=== PATIENT | male | born 1940 | race Caucasian/White ===

== ENCOUNTER 2016-11-26 13:27 | Emergency (ER) | payer MEDICAID, MEDICARE, OTHER ==
[~2016-11-26 13:27] MED LIST: AMOX1TAB64 PO; CYAN500T18 PO; DOXY100T PO; GABA100C8 PO; HYDR-3240 PO; OMEP-110 PO
== END 2016-11-26 15:45 ==
LOC: ED 13:27
DX: M75.32 Calcific tendinitis of left shoulder (principal)
CPT/HCPCS: 99284

== ENCOUNTER 2018-02-02 19:46 | Emergency (ER) | payer MEDICARE ==
[~2018-02-02] VITALS: Ht 188 cm; Wt 100.0 kg
[~2018-02-02 19:46] MED LIST changes: +GABA-826 PO; -GABA100C8 PO
[2018-02-02 19:50] VITALS: BP 111/64
[2018-02-02] MEDS ORDERED: aleve (20:05)
[2018-02-02 20:36] LABS: BASOPHILS # (AUTO) 0.06 x10^3/uL (0-0.1); BASOPHILS % (AUTO) 1 % (0-1); EOSINOPHILS # (AUTO) 0.25 x10^3/uL (0-0.4); EOSINOPHILS % (AUTO) 4 % (1-7); LYMPHOCYTES # (AUTO) 1.46 x10^3/uL (1-3.4); LYMPHOCYTES % (AUTO) 23 % (22-44); MD NO; MEAN CORPUSCULAR HGB CONC 33.4 g/dL (33.2-36.2); MEAN CORPUSCULAR VOLUME 95.8 fL (81-97); MEAN PLATELET VOLUME 7.8 fL (7.4-10.4); MONOCYTES # (AUTO) 0.59 x10^3/uL (0.2-0.8); MONOCYTES % (AUTO) 9 % (2-9); NEUTROPHILS # (AUTO) 4.03 x10^3/uL (1.8-6.8); NEUTROPHILS % (AUTO) 63 % (42-75); PLATELET COUNT 220 x10^3/uL (130-400); RED BLOOD COUNT 4.51 x10^6/uL (4.38-5.82); RED CELL DISTRIBUTION WIDTH 13.2 % (9.4-14.8)
[2018-02-02 20:43] LABS: ALANINE AMINOTRANSFERASE 25 U/L (12-78); ALBUMIN 3.2 g/dL (3.4-5.0); ANION GAP 9 mmol/L (5-15); CALCIUM 7.7 mg/dL (8.5-10.1); CHLORIDE 108 mmol/L (98-107); CREATININE 0.62 mg/dL (0.7-1.3)
[2018-02-02 20:46] LABS: ALKALINE PHOSPHATASE 69 U/L (45-117); BILIRUBIN,TOTAL 0.2 mg/dL (0.2-1.0); TOTAL PROTEIN 6.3 g/dL (6.4-8.2); TROPONIN I < 0.015 ng/mL (0.000-0.045)
[2018-02-02 20:55] LABS: MICROSCOPIC NOT IND
[2018-02-02 20:59] LABS: CULTURE INDICATED? NO
[2018-02-02] MEDS ORDERED: ACETAMINOPHEN 500 MG TABLET ONE (21:50)
[2018-02-02] MEDS ORDERED: ACETAMINOPHEN 500 MG TABLET PO ONE (22:00)
== END 2018-02-02 21:53 | disposition home or self-care (01) ==
LOC: ED 20:47
DX: R53.1 Weakness (principal)
CPT/HCPCS: 36415; 71045; 80053; 81003; 84484; 85025; 93005; 99285

== ENCOUNTER 2018-08-06 11:49 | Day surgery (SDC) | payer MEDICARE ==
[~2018-08-06] VITALS: Ht 188 cm; Wt 100.0 kg
[~2018-08-06 11:49] MED LIST changes: +CEFAZOLIN 1,000 MG ONE; +DEXAMETHASONE 4 MG/ML, 1ML ONE; +ONDANSETRON 2MG/ML, 2ML ONE; +PROPOFOL 10 MG/ML, 20ML ONE; +PROPOFOL 10 MG/ML, 50ML ONE; +ROCURONIUM 10MG/ML,5ML ONE; +SUCCINYLCHOLINE 20 MG/ML, 10ML ONE; +aleve
[2018-08-06] MEDS ORDERED: ACET80TA PO (12:43)
[2018-08-06 12:48] VITALS: BP 127/75
[2018-08-06] MEDS ORDERED: LACTATED RINGERS 1,000 ML IV SCH (13:07)
[2018-08-06] MEDS ORDERED: BUPIVACAINE/PF-EPI 0.5% 1:200K ONE (14:55)
[2018-08-06] MEDS ORDERED: FENTANYL PF 250 MCG/5ML ONE (15:09)
[2018-08-06] MEDS ORDERED: OXYcodone 5 MG/5 ML ORAL.SOL UDC ONE (16:25)
[2018-08-06] MEDS ORDERED: FENTANYL PF 100 MCG/2ML ONE (16:25)
[2018-08-06] MEDS ORDERED: ONDANSETRON 2MG/ML, 2ML IV PRN (16:30)
[2018-08-06] MEDS: FENTANYL PF 100 MCG/2ML IV PRN ×3 (16:30→16:45)
[2018-08-06] MEDS ORDERED: ACETAMINOPHEN 325 MG TABLET PO PRN (16:30)
[2018-08-06] MEDS ORDERED: LABETALOL 5MG/ML, 20ML IV PRN (16:30)
[2018-08-06] MEDS ORDERED: OXYcodone 5 MG/5 ML ORAL.SOL UDC PO PRN (16:30)
[2018-08-06] MEDS ORDERED: HYDROmorphone 2 MG/ML, 1ML IVPush PRN (16:30)
[2018-08-06] MEDS ORDERED: hydrALAzine 20 MG/ML, 1ML IV PRN (16:30)
[2018-08-06] MEDS ORDERED: ACETAMINOPHEN 650 MG/20.3 ML UDC ONE (16:36)
[2018-08-06] MEDS ORDERED: hydrALAzine 20 MG/ML, 1ML ONE (16:59)
== END 2018-08-06 18:30 | disposition home or self-care (01) ==
LOC: OUT 11:49
PROVIDERS: ATTEND Orthopaedic Surgery
DX: S82.851A Displaced trimalleolar fracture of right lower leg, initial encounter for closed fracture (principal); S93.431A Sprain of tibiofibular ligament of right ankle, initial encounter; I10 Essential (primary) hypertension; X58.XXXA Exposure to other specified factors, initial encounter; Y93.89 Activity, other specified; Y92.89 Other specified places as the place of occurrence of the external cause; Y99.8 Other external cause status
CPT/HCPCS: 27822; 27829; 73600; 76000; 93005; C1713; J0330; J0360; J0690; J1100; J2405; J2704; J3010; J7120

== ENCOUNTER 2018-12-01 15:56 | Emergency (ER) | payer MEDICARE ==
[~2018-12-01] VITALS: Ht 182.9 cm; Wt 85.0 kg
[~2018-12-01 15:56] MED LIST changes: +ACET80TA PO; -CEFAZOLIN 1,000 MG ONE; -DEXAMETHASONE 4 MG/ML, 1ML ONE; -ONDANSETRON 2MG/ML, 2ML ONE; -PROPOFOL 10 MG/ML, 20ML ONE; -PROPOFOL 10 MG/ML, 50ML ONE; -ROCURONIUM 10MG/ML,5ML ONE; -SUCCINYLCHOLINE 20 MG/ML, 10ML ONE
[2018-12-01 16:03] VITALS: BP 118/68
--- NOTE | 2018-12-01 16:34 | NUR ---
PT PRESENTED TO ED WITH RIGHT ANKLE WOUNDS AT WHICH HE WAS SEEN FOR WOUND CARE AT [facility]. PT HAD SURGERY ON FOOT PREVIOUSLY. PT IS DEAF AND VERY HARD TO UNDERSTAND. PT PLACED IN ROOM AND DRESSINGS UNWRAPPED. PT APPEARS A&OX4. ASSESSMENT COMPLETED AND DR. BYRNE AT BEDSIDE.
[2018-12-01] MEDS ORDERED: hydrOXyzine 50MG TABLET ONE (16:40)
[2018-12-01 16:57] LABS: BASOPHILS # (AUTO) 0.05 x10^3/uL (0-0.1); BASOPHILS % (AUTO) 1 % (0-1); EOSINOPHILS % (AUTO) 8 % (1-7); LYMPHOCYTES % (AUTO) 18 % (22-44); MD NO; MEAN CORPUSCULAR HEMOGLOBIN 30.2 pg (27.5-34.5); MEAN CORPUSCULAR HGB CONC 32.4 g/dL (33.2-36.2); MEAN CORPUSCULAR VOLUME 93.2 fL (81-97); MEAN PLATELET VOLUME 6.8 fL (7.4-10.4); MONOCYTES # (AUTO) 0.58 x10^3/uL (0.2-0.8); MONOCYTES % (AUTO) 9 % (2-9); NEUTROPHILS # (AUTO) 4.19 x10^3/uL (1.8-6.8); NEUTROPHILS % (AUTO) 64 % (42-75); PLATELET COUNT 231 x10^3/uL (130-400); RED BLOOD COUNT 4.39 x10^6/uL (4.38-5.82); RED CELL DISTRIBUTION WIDTH 14.6 % (9.4-14.8)
[2018-12-01 17:09] LABS: ANION GAP 9 mmol/L (5-15); CALCIUM 8.2 mg/dL (8.5-10.1); CHLORIDE 109 mmol/L (98-107); CREATININE 0.73 mg/dL (0.7-1.3)
--- NOTE | 2018-12-01 17:40 | NUR ---
US AT BEDSIDE PERFORMING US ON RIGHT LEG
--- NOTE | 2018-12-01 18:35 | NUR ---
RIGHT ANKLE XEROFORM PLACED ON OPEN WOUND AND KERLIX DRESSING WRAPPED AROUND ANKLE. PT TOLERATED WELL. PT GIVEN INSTRUCTIONS TO FOLLOW UP WITH WOUND CARE [facility] [address]. PT GIVEN ADDRESS FOR WOUND CARE CLINIC. WOUND CARE CLINIC PAPERWORK FILLED OUT AND GIVEN FAXED TO WOUND CARE. PT GIVEN COPY OF WOUND CARE CLINIC PAPERWORK AND VERBALIZED UNDERSTANDING. PT IS HOMELESS AND RESIDES AT [address] [place] [address]. PT INSTRUCTED TO GO TO WOUND CARE CLINIC TOMORROW TO GET ESTABLISHED.
== END 2018-12-01 18:42 | disposition home or self-care (01) ==
LOC: ED 17:47
DX: L24.9 Irritant contact dermatitis, unspecified cause (principal); M79.661 Pain in right lower leg
CPT/HCPCS: 36415; 73610; 80048; 85025; 93971; 99284; Q0177

== ENCOUNTER 2019-05-26 08:37 | Outpatient (CLI) | payer MEDICAID, MEDICARE ==
[~2019-05-26 08:37] MED LIST changes: +ACET-2065 PO; +CALA118S2 TP; +CEFA2PLA9 IVPB; +DIPH25CA61 PO; +ENOX40SY4 SQ; +HYDR-3237 PO; +HYDR-826 PO; +MORP1SYR2 IVPush; +MULT9LIQ10 PO; +ONDA4DIS IVPush; +OXYC5CAP2 PO
== END 2019-05-26 23:59 | disposition home or self-care (01) ==
LOC: WOUND 08:37
PROVIDERS: ATTEND Nurse Practitioner Family
DX: T81.89XA Other complications of procedures, not elsewhere classified, initial encounter (principal); M86.371 Chronic multifocal osteomyelitis, right ankle and foot; Y83.8 Other surgical procedures as the cause of abnormal reaction of the patient, or of later complication, without mention of misadventure at the time of the procedure; Y92.89 Other specified places as the place of occurrence of the external cause
CPT/HCPCS: 11042; G0463

== ENCOUNTER → 2019-06-09 | Outpatient (CLI) | payer MEDICARE, MEDICAID | END | disposition home or self-care (01) | LOC: WOUND 08:26 | PROVIDERS: ATTEND Nurse Practitioner Family | DX: T81.31XD Disruption of external operation (surgical) wound, not elsewhere classified, subsequent encounter (principal); M86.371 Chronic multifocal osteomyelitis, right ankle and foot; Y83.8 Other surgical procedures as the cause of abnormal reaction of the patient, or of later complication, without mention of misadventure at the time of the procedure | CPT/HCPCS: G0463 ==

== ENCOUNTER 2019-08-31 15:52 | Emergency (ER) | payer MEDICARE, MEDICAID ==
[~2019-08-31] VITALS: Ht 182.9 cm; Wt 98.5 kg
--- NOTE | 2019-08-31 16:00 | NUR ---
KAVEH DESAI FROM [facility] HOME WITH 3 WEEK HX OF URINARY INCONTINENCE. DENIES FEVER/ABD PAIN. VSS. PT DEAF BUT IS PROFICIENT AT MOUTH READING. ABLE TO ANSWER ALL QUESTIONS AND COMMUNICATE EFFECTIVELY. BP/SPO2 MONITORING IN PLACE. PT REQUESTING FOOD AND ASKING WHEN HE'LL "GO UP STAIRS". PT UPDATED TO POC. URINAL PROVIDED AND PT AWARE OF NEED FOR UA.
[2019-08-31 16:17] VITALS: BP 113/75
[2019-08-31] MEDS ORDERED: NYSTATIN OINT 15GM TP ONE (16:44)
--- NOTE | 2019-08-31 17:03 | NUR ---
UA COLLECTED AND SENT TO LAB
[2019-08-31 17:17] LABS: MICROSCOPIC NOT IND
[2019-08-31 17:21] LABS: CULTURE INDICATED? NO
--- NOTE | 2019-08-31 18:04 | NUR ---
POC IS DC. PER PT'S REQUEST, [facility] CONTACTED TO RESERVE BED. PER [facility], PT HAS BED (122) WHICH WILL BE AVAILABLE UPON HIS RETURN. PT DRESSING SELF.
--- NOTE | 2019-08-31 18:28 | NUR ---
TASK RN: FIRST CONTACT WITH PT. CALLED WHEELCHAIR ACCESSIBLE TAXI ON BEHALF OF HARD OF HEARING PT. ASSISTED PT TO D/C DESK. NADN. No other needs expressed.
== END 2019-08-31 18:30 | disposition home or self-care (01) ==
LOC: ED 16:52
DX: B37.2 Candidiasis of skin and nail (principal); R32 Unspecified urinary incontinence
CPT/HCPCS: 81003; 99283